=== PATIENT | female | born 1990 | race Two or more races ===

== ENCOUNTER 2019-10-04 09:24 | Observation (INO) | payer MEDICAID ==
[~2019-10-04] VITALS: Ht 149.9 cm; Wt 93.7 kg
[2019-10-04 10:25] LABS: Urine Amorphous Crystal MOD /hpf (None Seen); Urine Bacteria FEW /hpf (None Seen); Urine Blood Negative /uL (Negative); Urine Mucus FEW (None Seen); Urine Specific Gravity 1.009 (1.001-1.035); Urine WBC 9 /hpf (0 - 5)
[2019-10-04 10:53] VITALS: BP 144/81
[2019-10-04] MEDS ORDERED: PREN-153 OR (12:09)
== END 2019-10-04 12:08 | disposition home or self-care (01) | DRG 566 ==
LOC: ER 09:31 → LDRP 10:10
PROVIDERS: ADMIT Obstetrics & Gynecology; ATTEND Obstetrics & Gynecology
DX: O26.892 Other specified pregnancy related conditions, second trimester (principal); R03.0 Elevated blood-pressure reading, without diagnosis of hypertension; R10.9 Unspecified abdominal pain; Z3A.27 27 weeks gestation of pregnancy
CPT/HCPCS: 59025; 81001; 81002; 99284; G0378

== ENCOUNTER 2019-10-09 15:38 | Observation (INO) | payer MEDICAID ==
[~2019-10-09] VITALS: Ht 149.9 cm; Wt 95.7 kg
[~2019-10-09 15:38] MED LIST: PREN-153 OR
[2019-10-09 16:15] LABS: Basophils # (auto) 0 uL; Basophils % (auto) 0.4 % (0.0-2.0); Eosinophils # (auto) 0.1 uL; Eosinophils % (auto) 1.2 % (0.0-7.0); Hematocrit 36.5 % (36.0-46.0); Hemoglobin 12.6 g/dL (12.2-16.2); Lymphocytes % (auto) 19.5 % (10.0-50.0); Mean Corpuscular Hemoglobin 30.1 pg (28.0-32.0); Mean Corpuscular Hgb Conc. 34.6 g/dL (32.0-36.0); Monocytes # (auto) 0.6 uL; Monocytes % (auto) 5.9 % (0.0-12.0); Neutrophils # (auto) 7.7 uL; Platelet Count (auto) 290 10^3/uL (140-450); Red Cell Distribution Width 13.7 % (11.8-14.3); White Blood Cell 10.5 10^3/uL (4.4-10.8)
[2019-10-09 16:33] LABS: Albumin 2.7 g/dL (3.4-5.0); Calcium 9.5 mg/dL (8.5-10.1); INR 0.94 (0.9-1.15); Partial Thromboplastin Time 24.8 sec (23.64-32.05); Potassium 3.5 mmol/L (3.5-5.1)
[2019-10-09 16:37] LABS: Bilirubin, Total 0.2 mg/dL (0.2-1.0)
[2019-10-09 16:38] LABS: Urine Bacteria FEW /hpf (None Seen); Urine Blood Negative /uL (Negative); Urine Specific Gravity 1.006 (1.001-1.035); Urine WBC 3 /hpf (0 - 5)
[2019-10-09 16:49] LABS: Alcohol, Urine < 3.0 mg/dL (0-5); Barbiturate Scree,Urine NEGATIVE (NEGATIVE); Benzodiazephine Screen, Urine NEGATIVE (NEGATIVE); Cannabinoid Screen, Urine POSITIVE (NEGATIVE); Cocaine Screen, Urine NEGATIVE (NEGATIVE); Opiate Scree,Urine NEGATIVE (NEGATIVE); Phencyclidine Screen, Urine NEGATIVE (NEGATIVE)
[2019-10-09 16:56] LABS: Amphetamine Screen, Urine NEGATIVE (NEGATIVE)
== END 2019-10-09 16:58 | disposition home or self-care (01) | DRG 566 ==
LOC: LDRP 15:38
PROVIDERS: ADMIT Obstetrics & Gynecology; ATTEND Obstetrics & Gynecology
DX: O13.3 Gestational [pregnancy-induced] hypertension without significant proteinuria, third trimester (principal); O99.323 Drug use complicating pregnancy, third trimester; F12.90 Cannabis use, unspecified, uncomplicated; Z3A.28 28 weeks gestation of pregnancy
CPT/HCPCS: 36415; 59025; 80053; 80307; 81001; 81002; 84550; 85025; 85610; 85730; G0378

== ENCOUNTER 2019-10-11 11:15 | Observation (INO) | payer MEDICAID ==
[2019-10-11 12:42] LABS: Protein, Urine 13.9 mg/dL (0.0-11.9)
== END 2019-10-11 13:00 | disposition home or self-care (01) | DRG 566 ==
LOC: LDRP 11:15
PROVIDERS: ADMIT Obstetrics & Gynecology; ATTEND Obstetrics & Gynecology
DX: O13.3 Gestational [pregnancy-induced] hypertension without significant proteinuria, third trimester (principal); Z3A.28 28 weeks gestation of pregnancy
CPT/HCPCS: 59025; 81002; 84156; G0378

== ENCOUNTER 2019-10-14 15:00 | Observation (INO) | payer MEDICAID ==
[~2019-10-14] VITALS: Ht 149.9 cm; Wt 97.1 kg
[2019-10-14] MEDS ORDERED: LABETALOL HCL 200 MG TAB PO ONE (16:00)
[2019-10-14 16:59] LABS: Urine Bacteria FEW /hpf (None Seen); Urine Blood Negative /uL (Negative); Urine Specific Gravity 1.008 (1.001-1.035); Urine WBC 2 /hpf (0 - 5)
[2019-10-14 17:04] LABS: Alcohol, Urine < 3.0 mg/dL (0-5); Amphetamine Screen, Urine NEGATIVE (NEGATIVE); Barbiturate Scree,Urine NEGATIVE (NEGATIVE); Benzodiazephine Screen, Urine NEGATIVE (NEGATIVE); Cannabinoid Screen, Urine POSITIVE (NEGATIVE); Cocaine Screen, Urine NEGATIVE (NEGATIVE); Opiate Scree,Urine NEGATIVE (NEGATIVE); Phencyclidine Screen, Urine NEGATIVE (NEGATIVE)
== END 2019-10-14 17:55 | disposition home or self-care (01) | DRG 566 ==
LOC: LDRP 15:00
PROVIDERS: ADMIT Obstetrics & Gynecology; ATTEND Obstetrics & Gynecology
DX: O13.3 Gestational [pregnancy-induced] hypertension without significant proteinuria, third trimester (principal); Z3A.29 29 weeks gestation of pregnancy
CPT/HCPCS: 59025; 80307; 81001; 81002; G0378

== ENCOUNTER 2019-10-17 12:05 | Observation (INO) | payer MEDICAID ==
[~2019-10-17] VITALS: Ht 149.9 cm; Wt 97.1 kg
[2019-10-17] MEDS ORDERED: BETAMETHASONE ACET (6MG/ML) 5ML VIAL IM ONE (13:15)
[2019-10-17] MEDS ORDERED: LACTATED RINGER'S 1,000 ML IV ONE (13:15)
[2019-10-17 14:25] LABS: Albumin 2.6 g/dL (3.4-5.0); Calcium 8.9 mg/dL (8.5-10.1); Potassium 3.4 mmol/L (3.5-5.1)
[2019-10-17 14:28] LABS: BUN/Creatinine Ratio 11.4; Bilirubin, Total 0.3 mg/dL (0.2-1.0); Total Protein 6.6 g/dL (6.4-8.2)
[2019-10-20] MEDS ORDERED: LABE200T18 PO (06:42)
== END 2019-10-17 15:40 | disposition home or self-care (01) | DRG 566 ==
LOC: LDRP 12:05
PROVIDERS: ADMIT Specialist; ATTEND Specialist
DX: O13.3 Gestational [pregnancy-induced] hypertension without significant proteinuria, third trimester (principal); Z3A.29 29 weeks gestation of pregnancy
CPT/HCPCS: 36415; 59025; 76818; 80053; 81002; 96372; G0378; J0702; 96361; 96366

== ENCOUNTER 2019-10-18 14:05 | Observation (INO) | payer MEDICAID ==
[~2019-10-18] VITALS: Ht 149.9 cm; Wt 97.5 kg
[2019-10-18] MEDS ORDERED: BETAMETHASONE ACET (6MG/ML) 5ML VIAL IM SCH (14:45)
[2019-10-18 15:08] LABS: Urine Bacteria NONE SEEN /hpf (None Seen); Urine Blood Negative /uL (Negative); Urine WBC 4 /hpf (0 - 5)
[2019-10-18 15:20] LABS: Alcohol, Urine < 3.0 mg/dL (0-5); Amphetamine Screen, Urine NEGATIVE (NEGATIVE); Barbiturate Scree,Urine NEGATIVE (NEGATIVE); Benzodiazephine Screen, Urine NEGATIVE (NEGATIVE); Cannabinoid Screen, Urine POSITIVE (NEGATIVE); Cocaine Screen, Urine NEGATIVE (NEGATIVE); Opiate Scree,Urine NEGATIVE (NEGATIVE); Phencyclidine Screen, Urine NEGATIVE (NEGATIVE)
[2019-10-19] MEDS ORDERED: BETAMETHASONE ACET (6MG/ML) 5ML VIAL IM SCH (10:00)
== END 2019-10-18 15:40 | disposition home or self-care (01) | DRG 861 ==
LOC: LDRP 14:05
PROVIDERS: ADMIT Specialist; ATTEND Specialist
DX: Z34.83 Encounter for supervision of other normal pregnancy, third trimester (principal); Z3A.29 29 weeks gestation of pregnancy
CPT/HCPCS: 80307; 81001; G0378; J0702; 59025; 81002; 96372

== ENCOUNTER 2019-10-24 13:55 | Observation (INO) | payer MEDICAID ==
[~2019-10-24 13:55] MED LIST changes: +LABE200T18 PO
== END 2019-10-24 16:30 | disposition home or self-care (01) | DRG 566 ==
LOC: LDRP 13:55
PROVIDERS: ADMIT Specialist; ATTEND Specialist
DX: O13.3 Gestational [pregnancy-induced] hypertension without significant proteinuria, third trimester (principal); O60.03 Preterm labor without delivery, third trimester; Z3A.30 30 weeks gestation of pregnancy
CPT/HCPCS: 59025; 76818; 81002; 84156; G0378

== ENCOUNTER 2019-10-27 15:00 | Observation (INO) | payer MEDICAID ==
[~2019-10-27] VITALS: Ht 149.9 cm; Wt 96.2 kg
[2019-10-27] MEDS ORDERED: NIF10C PO (16:30)
== END 2019-10-27 17:25 | disposition home or self-care (01) | DRG 566 ==
LOC: LDRP 15:00
PROVIDERS: ADMIT Specialist; ATTEND Specialist
DX: O13.3 Gestational [pregnancy-induced] hypertension without significant proteinuria, third trimester (principal); O60.03 Preterm labor without delivery, third trimester; Z3A.31 31 weeks gestation of pregnancy
CPT/HCPCS: 59025; 76818; 81002; G0378

== ENCOUNTER 2019-10-29 10:05 | Observation (INO) | payer MEDICAID ==
[~2019-10-29 10:05] MED LIST changes: +NIF10C PO
[2019-10-29 10:41] LABS: Basophils # (auto) 0 uL; Basophils % (auto) 0.5 % (0.0-2.0); Eosinophils # (auto) 0.2 uL; Hematocrit 36.9 % (36.0-46.0); Hemoglobin 12.6 g/dL (12.2-16.2); Lymphocytes % (auto) 20.2 % (10.0-50.0); Mean Corpuscular Hemoglobin 30.1 pg (28.0-32.0); Mean Corpuscular Hgb Conc. 34.1 g/dL (32.0-36.0); Mean Corpuscular Volume 88.5 fL (80.0-100.0); Monocytes # (auto) 0.5 uL; Monocytes % (auto) 5.7 % (0.0-12.0); Neutrophils # (auto) 6.9 uL; Neutrophils % (auto) 71.6 % (37.0-80.0); Nucleated Red Blood Cells % 0.1 %; Platelet Count (auto) 261 10^3/uL (140-450); Red Blood Cells 4.17 10^6/uL (4.0-5.20); Red Cell Distribution Width 14.1 % (11.8-14.3); White Blood Cell 9.7 10^3/uL (4.4-10.8)
--- NOTE | 2019-10-29 10:45 | NUR ---
Blood loss 91ml. Addendum: 10/29/19 at 1122 by Laura Cruz RN Note made on wrong Patient
[2019-10-29 10:51] LABS: Urine Bacteria NONE SEEN /hpf (None Seen); Urine Blood Negative /uL (Negative); Urine Specific Gravity 1.011 (1.001-1.035); Urine WBC 3 /hpf (0 - 5)
[2019-10-29 10:52] LABS: INR 0.91 (0.9-1.15); Partial Thromboplastin Time 25.8 sec (23.64-32.05)
[2019-10-29 11:42] LABS: Amphetamine Screen, Urine NEGATIVE (NEGATIVE); Barbiturate Scree,Urine NEGATIVE (NEGATIVE); Cannabinoid Screen, Urine NEGATIVE (NEGATIVE)
[2019-10-29 11:50] LABS: Alcohol, Urine < 3.0 mg/dL (0-5); Benzodiazephine Screen, Urine NEGATIVE (NEGATIVE); Cocaine Screen, Urine NEGATIVE (NEGATIVE); Opiate Scree,Urine NEGATIVE (NEGATIVE); Phencyclidine Screen, Urine NEGATIVE (NEGATIVE)
[2019-10-29 12:15] LABS: Potassium 3.7 mmol/L (3.5-5.1)
[2019-10-29 12:36] LABS: Albumin 2.7 g/dL (3.4-5.0); BUN/Creatinine Ratio 12.8; Bilirubin, Total 0.2 mg/dL (0.2-1.0); Calcium 8.9 mg/dL (8.5-10.1); Total Protein 6.8 g/dL (6.4-8.2); Uric Acid 3.6 mg/dL (2.6-6.0)
== END 2019-10-29 13:05 | disposition home or self-care (01) | DRG 566 ==
LOC: LDRP 10:05
PROVIDERS: ADMIT Specialist; ATTEND Specialist
DX: O13.3 Gestational [pregnancy-induced] hypertension without significant proteinuria, third trimester (principal); Z3A.31 31 weeks gestation of pregnancy
CPT/HCPCS: 36415; 59025; 80053; 80307; 81001; 81002; 84550; 85025; 85610; 85730; G0378

== ENCOUNTER 2019-11-02 18:34 | Observation (INO) | payer MEDICAID ==
[~2019-11-02] VITALS: Ht 149.9 cm; Wt 93.4 kg
[2019-11-02 22:41] LABS: Protein, Urine 6.5 mg/dL (0.0-11.9)
[2019-11-02] MEDS ORDERED: HYDR250I6 IM (23:08)
== END 2019-11-02 23:00 | disposition home or self-care (01) | DRG 566 ==
LOC: LDRP 18:34
PROVIDERS: ADMIT Obstetrics & Gynecology; ATTEND Obstetrics & Gynecology
DX: O13.3 Gestational [pregnancy-induced] hypertension without significant proteinuria, third trimester (principal); O60.03 Preterm labor without delivery, third trimester; Z3A.31 31 weeks gestation of pregnancy
CPT/HCPCS: 59025; 76818; 81002; 84156; G0378

== ENCOUNTER 2019-11-04 15:03 | Observation (INO) | payer MEDICAID ==
[~2019-11-04 15:03] MED LIST changes: +HYDR250I6 IM
[2019-11-04] MEDS ORDERED: TERBUTALINE SULFATE 1 MG/ML 1ML VIAL SC ONE (16:30)
== END 2019-11-04 17:20 | disposition home or self-care (01) | DRG 566 ==
LOC: LDRP 15:03
PROVIDERS: ADMIT Obstetrics & Gynecology; ATTEND Obstetrics & Gynecology
DX: O13.3 Gestational [pregnancy-induced] hypertension without significant proteinuria, third trimester (principal); O60.03 Preterm labor without delivery, third trimester; Z3A.32 32 weeks gestation of pregnancy
CPT/HCPCS: 59025; 76818; 81002; 96372; G0378; J3105

== ENCOUNTER 2019-11-05 09:10 | Observation (INO) | payer MEDICAID | END 2019-11-05 11:20 | disposition home or self-care (01) | DRG 566 | LOC: LDRP 09:10 | PROVIDERS: ADMIT Specialist; ATTEND Specialist | DX: O26.893 Other specified pregnancy related conditions, third trimester (principal); F12.90 Cannabis use, unspecified, uncomplicated; R10.9 Unspecified abdominal pain; O99.333 Smoking (tobacco) complicating pregnancy, third trimester; F17.210 Nicotine dependence, cigarettes, uncomplicated; O99.323 Drug use complicating pregnancy, third trimester; Z3A.32 32 weeks gestation of pregnancy | CPT/HCPCS: 59025; 81002; G0378 ==

== ENCOUNTER 2019-11-06 11:40 | Observation (INO) | payer MEDICAID ==
[~2019-11-06] VITALS: Ht 149.9 cm; Wt 95.3 kg
[2019-11-06] MEDS ORDERED: NIFEdipine 10 MG CAP PO ONE (12:30)
[2019-11-06] MEDS ORDERED: NIFEdipine 10 MG CAP ONE (12:37)
[2019-11-06 13:39] LABS: Alcohol, Urine < 3.0 mg/dL (0-5); Amphetamine Screen, Urine NEGATIVE (NEGATIVE); Barbiturate Scree,Urine NEGATIVE (NEGATIVE); Benzodiazephine Screen, Urine NEGATIVE (NEGATIVE); Cannabinoid Screen, Urine NEGATIVE (NEGATIVE); Cocaine Screen, Urine NEGATIVE (NEGATIVE); Opiate Scree,Urine NEGATIVE (NEGATIVE); Phencyclidine Screen, Urine NEGATIVE (NEGATIVE)
== END 2019-11-06 14:00 | disposition home or self-care (01) | DRG 563 ==
LOC: LDRP 11:40
PROVIDERS: ADMIT Specialist; ATTEND Specialist
DX: O60.00 Preterm labor without delivery, unspecified trimester (principal); Z3A.00 Weeks of gestation of pregnancy not specified
CPT/HCPCS: 59025; 76818; 80307; 81002; G0378

== ENCOUNTER 2019-11-07 13:13 | Observation (INO) | payer MEDICAID ==
[~2019-11-07] VITALS: Ht 149.9 cm; Wt 95.3 kg
== END 2019-11-07 15:35 | disposition home or self-care (01) | DRG 563 ==
LOC: LDRP 13:13
PROVIDERS: ADMIT Obstetrics & Gynecology; ATTEND Obstetrics & Gynecology
DX: O60.03 Preterm labor without delivery, third trimester (principal); O99.323 Drug use complicating pregnancy, third trimester; O13.3 Gestational [pregnancy-induced] hypertension without significant proteinuria, third trimester; O99.333 Smoking (tobacco) complicating pregnancy, third trimester; F17.210 Nicotine dependence, cigarettes, uncomplicated; F12.90 Cannabis use, unspecified, uncomplicated; Z3A.32 32 weeks gestation of pregnancy
CPT/HCPCS: 59025; 76818; 81002; G0378

== ENCOUNTER 2019-11-10 15:14 | Observation (INO) | payer MEDICAID ==
[~2019-11-10] VITALS: Ht 149.9 cm; Wt 95.3 kg
[2019-11-10] MEDS ORDERED: TERBUTALINE SULFATE 1 MG/ML 1ML VIAL SC SCH (17:45)
== END 2019-11-10 19:30 | disposition home or self-care (01) | DRG 566 ==
LOC: LDRP 15:14
PROVIDERS: ADMIT Specialist; ATTEND Specialist
DX: O13.3 Gestational [pregnancy-induced] hypertension without significant proteinuria, third trimester (principal); F17.210 Nicotine dependence, cigarettes, uncomplicated; O99.333 Smoking (tobacco) complicating pregnancy, third trimester; Z3A.33 33 weeks gestation of pregnancy
CPT/HCPCS: 59025; 76818; 81002; 96372; G0378; J3105

== ENCOUNTER 2019-11-12 09:17 | Observation (INO) | payer MEDICAID ==
[2019-11-12 11:06] LABS: Basophils # (auto) 0 uL; Basophils % (auto) 0.2 % (0.0-2.0); Eosinophils # (auto) 0.1 uL; Eosinophils % (auto) 0.9 % (0.0-7.0); Hematocrit 37.6 % (36.0-46.0); Lymphocytes # (auto) 2.1 uL; Lymphocytes % (auto) 19.1 % (10.0-50.0); Mean Corpuscular Hemoglobin 30.3 pg (28.0-32.0); Mean Corpuscular Hgb Conc. 34.6 g/dL (32.0-36.0); Mean Corpuscular Volume 87.3 fL (80.0-100.0); Monocytes # (auto) 0.7 uL; Monocytes % (auto) 6.5 % (0.0-12.0); Neutrophils # (auto) 8.2 uL; Neutrophils % (auto) 73.3 % (37.0-80.0); Platelet Count (auto) 296 10^3/uL (140-450); Red Cell Distribution Width 14.3 % (11.8-14.3); White Blood Cell 11.2 10^3/uL (4.4-10.8)
[2019-11-12 11:15] LABS: Albumin 2.8 g/dL (3.4-5.0); Calcium 9.1 mg/dL (8.5-10.1); Uric Acid 4.2 mg/dL (2.6-6.0)
[2019-11-12 11:18] LABS: BUN/Creatinine Ratio 21.3; Bilirubin, Total 0.3 mg/dL (0.2-1.0); Total Protein 7.1 g/dL (6.4-8.2)
== END 2019-11-12 13:00 | disposition home or self-care (01) | DRG 566 ==
LOC: LDRP 09:17
PROVIDERS: ADMIT Obstetrics & Gynecology; ATTEND Obstetrics & Gynecology
DX: O13.3 Gestational [pregnancy-induced] hypertension without significant proteinuria, third trimester (principal); F17.210 Nicotine dependence, cigarettes, uncomplicated; O99.333 Smoking (tobacco) complicating pregnancy, third trimester; Z3A.33 33 weeks gestation of pregnancy
CPT/HCPCS: 36415; 59025; 76818; 80053; 81002; 84550; 85025; G0378

== ENCOUNTER 2019-11-14 11:12 | Observation (INO) | payer MEDICAID ==
[2019-11-14 13:17] LABS: Protein, Urine 13.1 mg/dL (0.0-11.9)
[2019-11-14 13:58] LABS: 24 Hr. Total Protein, Urine 229.2 mg/24 Hr (<149.1)
== END 2019-11-14 13:20 | disposition home or self-care (01) | DRG 566 ==
LOC: LDRP 11:12
PROVIDERS: ADMIT Obstetrics & Gynecology; ATTEND Obstetrics & Gynecology
DX: O13.3 Gestational [pregnancy-induced] hypertension without significant proteinuria, third trimester (principal); O60.03 Preterm labor without delivery, third trimester; O99.333 Smoking (tobacco) complicating pregnancy, third trimester; F17.210 Nicotine dependence, cigarettes, uncomplicated; Z3A.33 33 weeks gestation of pregnancy
CPT/HCPCS: 59025; 76818; 81002; 84156; 94760; G0378

== ENCOUNTER 2019-11-18 14:49 | Observation (INO) | payer MEDICAID ==
[~2019-11-18] VITALS: Ht 149.9 cm; Wt 97.5 kg
== END 2019-11-18 15:55 | disposition home or self-care (01) | DRG 563 ==
LOC: LDRP 14:49
PROVIDERS: ADMIT Obstetrics & Gynecology; ATTEND Obstetrics & Gynecology
DX: O60.03 Preterm labor without delivery, third trimester (principal); O26.893 Other specified pregnancy related conditions, third trimester; R10.2 Pelvic and perineal pain; O13.3 Gestational [pregnancy-induced] hypertension without significant proteinuria, third trimester; O99.333 Smoking (tobacco) complicating pregnancy, third trimester; F17.210 Nicotine dependence, cigarettes, uncomplicated; Z91.040 Latex allergy status; Z3A.34 34 weeks gestation of pregnancy
CPT/HCPCS: 59025; 76818; 81002; G0378

== ENCOUNTER 2019-11-21 11:47 | Observation (INO) | payer MEDICAID | END 2019-11-21 13:55 | disposition home or self-care (01) | DRG 566 | LOC: LDRP 11:47 | PROVIDERS: ADMIT Obstetrics & Gynecology; ATTEND Obstetrics & Gynecology | DX: O13.3 Gestational [pregnancy-induced] hypertension without significant proteinuria, third trimester (principal); O60.03 Preterm labor without delivery, third trimester; Z3A.34 34 weeks gestation of pregnancy; Z87.891 Personal history of nicotine dependence; Z91.040 Latex allergy status | CPT/HCPCS: 59025; 76818; 81002; G0378 ==

== ENCOUNTER 2019-11-24 14:02 | Observation (INO) | payer MEDICAID ==
[2019-11-24] MEDS ORDERED: BETAMETHASONE ACET (6MG/ML) 5ML VIAL IM ONE (16:45)
== END 2019-11-24 20:10 | disposition home or self-care (01) | DRG 566 ==
LOC: LDRP 14:02
PROVIDERS: ADMIT Specialist; ATTEND Specialist
DX: O13.3 Gestational [pregnancy-induced] hypertension without significant proteinuria, third trimester (principal); O60.03 Preterm labor without delivery, third trimester; Z87.891 Personal history of nicotine dependence; Z91.040 Latex allergy status; Z3A.35 35 weeks gestation of pregnancy
CPT/HCPCS: 59025; 76818; 81002; G0378

== ENCOUNTER 2019-11-25 12:07 | Observation (INO) | payer MEDICAID ==
[2019-11-25 14:11] LABS: Basophils # (auto) 0 uL; Basophils % (auto) 0.2 % (0.0-2.0); Eosinophils # (auto) 0.1 uL; Eosinophils % (auto) 0.8 % (0.0-7.0); Hemoglobin 12.4 g/dL (12.2-16.2); Lymphocytes # (auto) 1.9 uL; Lymphocytes % (auto) 20.7 % (10.0-50.0); Mean Corpuscular Hemoglobin 30.1 pg (28.0-32.0); Mean Corpuscular Hgb Conc. 34.4 g/dL (32.0-36.0); Mean Corpuscular Volume 87.6 fL (80.0-100.0); Monocytes # (auto) 0.4 uL; Neutrophils # (auto) 6.6 uL; Neutrophils % (auto) 73.3 % (37.0-80.0); Nucleated Red Blood Cells % 0.1 %; Platelet Count (auto) 240 10^3/uL (140-450); Red Blood Cells 4.11 10^6/uL (4.0-5.20); Red Cell Distribution Width 14.3 % (11.8-14.3)
[2019-11-25 14:17] LABS: Urine Amorphous Crystal MOD /hpf (None Seen); Urine Bacteria MOD /hpf (None Seen); Urine Blood Negative /uL (Negative); Urine WBC 19 /hpf (0 - 5)
[2019-11-25 14:24] LABS: INR 0.9 (0.9-1.15); Partial Thromboplastin Time 25.6 sec (23.64-32.05)
[2019-11-25 14:28] LABS: Albumin 2.4 g/dL (3.4-5.0); Calcium 8.6 mg/dL (8.5-10.1); Potassium 3.9 mmol/L (3.5-5.1)
[2019-11-25 14:38] LABS: BUN/Creatinine Ratio 14.8; Bilirubin, Total 0.2 mg/dL (0.2-1.0); Total Protein 6.5 g/dL (6.4-8.2); Uric Acid 4.9 mg/dL (2.6-6.0)
[2019-11-25] MEDS ORDERED: BETAMETHASONE ACET (6MG/ML) 5ML VIAL IM ONE (16:15)
== END 2019-11-25 18:50 | disposition home or self-care (01) | DRG 566 ==
LOC: LDRP 12:07
PROVIDERS: ADMIT Obstetrics & Gynecology; ATTEND Obstetrics & Gynecology
DX: O13.3 Gestational [pregnancy-induced] hypertension without significant proteinuria, third trimester (principal); O60.03 Preterm labor without delivery, third trimester; Z3A.35 35 weeks gestation of pregnancy
CPT/HCPCS: 36415; 59025; 76818; 80053; 81001; 81002; 84550; 85025; 85610; 85730; 96372; G0378; J0702; 96361; 96366

== ENCOUNTER 2019-11-26 19:00 | Observation (INO) | payer MEDICAID ==
[~2019-11-26] VITALS: Ht 149.9 cm; Wt 99.8 kg
[2019-11-26] MEDS ORDERED: BETAMETHASONE ACET (6MG/ML) 5ML VIAL IM ONE (19:30)
== END 2019-11-26 20:07 | disposition home or self-care (01) | DRG 563 ==
LOC: LDRP 19:00
PROVIDERS: ADMIT Obstetrics & Gynecology; ATTEND Obstetrics & Gynecology
DX: O60.03 Preterm labor without delivery, third trimester (principal); O13.3 Gestational [pregnancy-induced] hypertension without significant proteinuria, third trimester; Z3A.35 35 weeks gestation of pregnancy
CPT/HCPCS: 59025; 81002; 96372; G0378

== ENCOUNTER 2019-11-28 10:08 | Observation (INO) | payer MEDICAID | END 2019-11-28 13:40 | disposition home or self-care (01) | DRG 566 | LOC: LDRP 10:08 | PROVIDERS: ADMIT Specialist; ATTEND Specialist | DX: O13.3 Gestational [pregnancy-induced] hypertension without significant proteinuria, third trimester (principal); Z3A.35 35 weeks gestation of pregnancy | CPT/HCPCS: 59025; 76818; 81002; 84156; G0378 ==

== ENCOUNTER 2019-11-29 22:30 | Inpatient (IN) | payer MEDICAID ==
[~2019-11-29] VITALS: Ht 149.9 cm; Wt 99.3 kg
[~2019-11-29 22:30] MED LIST changes: -HYDR250I6 IM
[2019-11-29] MEDS ORDERED: LACT. RINGERS/OXYTOCIN 20UNITS 1,000 ML IV SCH (22:48)
[2019-11-29] MEDS ORDERED: CARBOPROST TROMETHAMINE 250 MCG/1ML VIAL IM PRN (23:00)
[2019-11-29] MEDS ORDERED: PHISODERM TOP SOLN 240ML BTL TOP PRN (23:00)
[2019-11-29] MEDS ORDERED: DERMOPLAST 60ML BOTTLE TOP PRN (23:00)
[2019-11-29] MEDS ORDERED: LIDOCAINE 2%HCL (LOCAL ANESTH.) INJ 20ML MDV ID ONE (23:00)
[2019-11-29] MEDS ORDERED: WITCH HAZEL-GLYCERIN PAD TOP PRN (23:00)
[2019-11-29] MEDS ORDERED: METHYLERGONOVINE MALEATE 0.2 MG/ML AMP IM PRN (23:00)
[2019-11-29] MEDS ORDERED: PENICILLIN G POT 5MIL/D5 50ML 50 ML IV ONE (23:00)
[2019-11-29] MEDS: LACTATED RINGER'S 1,000 ML IV SCH (23:25)
[2019-11-29 23:53] LABS: Basophils # (auto) 0.1 uL; Basophils % (auto) 0.6 % (0.0-2.0); Eosinophils # (auto) 0.1 uL; Eosinophils % (auto) 0.6 % (0.0-7.0); Hemoglobin 13.3 g/dL (12.2-16.2); Lymphocytes # (auto) 2.8 uL; Lymphocytes % (auto) 20.7 % (10.0-50.0); Mean Corpuscular Hemoglobin 30.2 pg (28.0-32.0); Mean Corpuscular Hgb Conc. 34.9 g/dL (32.0-36.0); Mean Corpuscular Volume 86.4 fL (80.0-100.0); Monocytes # (auto) 1.1 uL; Neutrophils # (auto) 9.4 uL; Neutrophils % (auto) 70.1 % (37.0-80.0); Platelet Count (auto) 250 10^3/uL (140-450); Red Cell Distribution Width 14.3 % (11.8-14.3); White Blood Cell 13.4 10^3/uL (4.4-10.8)
[2019-11-30 00:02] LABS: INR 0.86 (0.9-1.15); Partial Thromboplastin Time 21.8 sec (23.64-32.05)
[2019-11-30 00:13] LABS: Bilirubin, Total 0.2 mg/dL (0.2-1.0); Uric Acid 5.1 mg/dL (2.6-6.0)
[2019-11-30 00:15] LABS: Albumin 2.7 g/dL (3.4-5.0); BUN/Creatinine Ratio 21.7; Calcium 9.1 mg/dL (8.5-10.1); Potassium 3.9 mmol/L (3.5-5.1)
[2019-11-30] MEDS ORDERED: LACTATED RINGER'S 1,000 ML IV ONE (00:23)
[2019-11-30] MEDS ORDERED: ePHEDrine SULFATE 50 MG/ML AMP ONE (00:27)
[2019-11-30] MEDS ORDERED: fentaNYL 200mCg/100ml W ROPIVA 100 ML EPI ONE (00:27)
[2019-11-30] MEDS ORDERED: fentaNYL CITRATE 100 MCG/2 ML VL IV ONE (00:30)
[2019-11-30] MEDS ORDERED: LIDOCAINE HCL 2 %PF INJ 10ML AMP IJ ONE (00:30)
[2019-11-30] MEDS ORDERED: NALOXONE HCL 0.4 MG/ML VIAL IV ONE ×2 (00:30→01:45)
[2019-11-30] MEDS ORDERED: fentaNYL 200mCg/100ml W ROPIVA 100 ML EPI SCH (00:30)
[2019-11-30] MEDS ORDERED: ePHEDrine SULFATE 50 MG/ML AMP IV ONE ×2 (00:30→01:45)
[2019-11-30 02:04] LABS: Alcohol, Urine < 3.0 mg/dL (0-5); Amphetamine Screen, Urine NEGATIVE (NEGATIVE); Barbiturate Scree,Urine NEGATIVE (NEGATIVE); Benzodiazephine Screen, Urine NEGATIVE (NEGATIVE); Cannabinoid Screen, Urine NEGATIVE (NEGATIVE); Cocaine Screen, Urine NEGATIVE (NEGATIVE); Opiate Scree,Urine NEGATIVE (NEGATIVE); Phencyclidine Screen, Urine NEGATIVE (NEGATIVE)
[2019-11-30] MEDS ORDERED: PENICILLIN G POT 5MILLION UNIT VIAL ONE (03:07)
[2019-11-30] MEDS: PENICILLIN G POTASSIUM 2,500,000 UNITS in D5W 5% 50 ML IV SCH ×2 (03:53→08:07)
[2019-11-30] MEDS: LACTATED RINGER'S 1,000 ML IV SCH (06:52)
[2019-11-30] MEDS ORDERED: hydrALAZINE HCL 20 MG/ML VL ONE (07:36)
[2019-11-30] MEDS: IBUPROFEN 600 MG TAB PO PRN ×3 (12:25→22:28)
[2019-11-30 15:09] VITALS: BP 145/79
[2019-11-30 19:08] VITALS: BP 150/87
[2019-11-30 22:48] LABS: Urine WBC None Seen /hpf (0 - 5)
[2019-11-30 23:00] VITALS: BP 135/69
[2019-11-30 23:09] LABS: Urine Bacteria NONE SEEN /hpf (None Seen); Urine Blood Negative /uL (Negative); Urine Mucus FEW (None Seen); Urine Specific Gravity 1.021 (1.001-1.035)
[2019-12-01] VITALS (8 sets, daily range): BP systolic 137–161; BP diastolic 72–91
[2019-12-01] MEDS: IBUPROFEN 600 MG TAB PO PRN ×4 (01:15→21:39)
[2019-12-01] MEDS: LABETALOL HCL 200 MG TAB PO SCH ×2 (09:53→21:41)
[2019-12-02 03:30] VITALS: BP 131/80
[2019-12-02] MEDS: IBUPROFEN 600 MG TAB PO PRN ×2 (03:52→15:44)
[2019-12-02 07:15] VITALS: BP 145/84
[2019-12-02] MEDS: LABETALOL HCL 200 MG TAB PO SCH (10:20)
[2019-12-02 11:10] VITALS: BP 150/77
[2019-12-02 15:00] VITALS: BP 120/68
[2019-12-02 19:00] VITALS: BP 168/88
[2019-12-02] MEDS ORDERED: NIFEdipine ER 30 MG TAB PO SCH (19:15)
[2019-12-02 22:28] VITALS: BP 138/78
== END 2019-12-02 22:40 | disposition home or self-care (01) | DRG 560 ==
LOC: LDRP 22:30
PROVIDERS: ADMIT Specialist; ATTEND Specialist
PROC: 10E0XZZ Delivery of Products of Conception, External Approach (ICD-10-PCS; principal; 2019-11-30)
PROC: 0UQGXZZ Repair Vagina, External Approach (ICD-10-PCS; 2019-11-30)
PROC: 3E0R3BZ Introduction of Anesthetic Agent into Spinal Canal, Percutaneous Approach (ICD-10-PCS; 2019-11-30)
PROC: 00HU33Z Insertion of Infusion Device into Spinal Canal, Percutaneous Approach (ICD-10-PCS; 2019-11-30)
DX: O13.4 Gestational [pregnancy-induced] hypertension without significant proteinuria, complicating childbirth (principal); O60.14X0 Preterm labor third trimester with preterm delivery third trimester, not applicable or unspecified; O36.5930 Maternal care for other known or suspected poor fetal growth, third trimester, not applicable or unspecified; O71.4 Obstetric high vaginal laceration alone; Z37.0 Single live birth; Z3A.35 35 weeks gestation of pregnancy
CPT/HCPCS: 36415; 51702; 59409; 62282; 76805; 80053; 80307; 81001; 84112; 84550; 85025; 85610; 85730; 86592; 86850; 86900; 86901; 94760; 96375; G0378; J2540; J2590; J7060

== ENCOUNTER → 2022-08-22 | Outpatient (CLI) | payer MEDICAID ==
[~2022-08-22] MED LIST changes: +ASPI-498 OR; +HYDR250I6 IM; -LABE200T18 PO; +LABE200T7 PO; -NIF10C PO; -PREN-153 OR; +PREN1TAB71 OR
== END | disposition home or self-care (01) ==
LOC: LAB 13:02
PROVIDERS: ATTEND Obstetrics & Gynecology
DX: Z34.80 Encounter for supervision of other normal pregnancy, unspecified trimester (principal); Z3A.00 Weeks of gestation of pregnancy not specified

== ENCOUNTER 2022-08-24 15:58 | Observation (INO) | payer MEDICAID ==
[~2022-08-24 15:58] MED LIST changes: -ASPI-498 OR; -HYDR250I6 IM
[2022-08-24] MEDS ORDERED: HYDR250I6 IM (16:26)
[2022-08-24] MEDS ORDERED: ASPI-498 OR (16:26)
== END 2022-08-24 16:46 | disposition home or self-care (01) ==
LOC: UNDOADMOB 15:58 → LDRP 15:58
PROVIDERS: ADMIT Obstetrics & Gynecology; ATTEND Obstetrics & Gynecology
DX: O60.02 Preterm labor without delivery, second trimester (principal); O62.9 Abnormality of forces of labor, unspecified; O26.893 Other specified pregnancy related conditions, third trimester; R10.30 Lower abdominal pain, unspecified; Z3A.24 24 weeks gestation of pregnancy
CPT/HCPCS: 59025; 81002; G0378

== ENCOUNTER 2022-10-12 10:32 | Observation (INO) | payer MEDICAID ==
[~2022-10-12 10:32] MED LIST changes: +ASPI-498 OR; +HYDR250I6 IM; -LABE200T7 PO
[2022-10-12] MEDS ORDERED: METF-370 PO (12:02)
== END 2022-10-12 12:09 | disposition home or self-care (01) ==
LOC: LDRP 10:32
PROVIDERS: ADMIT Obstetrics & Gynecology; ATTEND Obstetrics & Gynecology
DX: O24.415 Gestational diabetes mellitus in pregnancy, controlled by oral hypoglycemic drugs (principal); Z3A.31 31 weeks gestation of pregnancy; Z79.84 Long term (current) use of oral hypoglycemic drugs
CPT/HCPCS: 59025; 76818; 81002; 82948; 82962; 94760; G0378

== ENCOUNTER 2022-10-18 11:30 | Observation (INO) | payer MEDICAID ==
[~2022-10-18 11:30] MED LIST changes: +METF-370 PO
[2022-10-18] MEDS ORDERED: NIFEdipine 10 MG CAP PO ONE (12:15)
[2022-10-18] MEDS ORDERED: TERBUTALINE SULFATE 1 MG/ML 1ML VIAL SC ONE (12:45)
[2022-10-18 13:27] LABS: Basophils # (auto) 0 10 ^3/uL (0-0.2); Basophils % (auto) 0.2 % (0.0-2.0); Eosinophils # (auto) 0.1 10 ^3/uL (0-0.8); Eosinophils % (auto) 1.1 % (0.0-7.0); Hematocrit 35.2 % (36.0-46.0); Hemoglobin 12.3 g/dL (12.2-16.2); Lymphocytes # (auto) 1.5 10 ^3/uL (0.4-5.4); Lymphocytes % (auto) 17.4 % (10.0-50.0); Mean Corpuscular Hemoglobin 30.4 pg (28.0-32.0); Mean Corpuscular Hgb Conc. 34.9 g/dL (32.0-36.0); Monocytes # (auto) 0.5 10 ^3/uL (0-1.3); Monocytes % (auto) 5.3 % (0.0-12.0); Neutrophils # (auto) 6.4 10 ^3/uL (1.6-8.6); Red Blood Cells 4.05 10^6/uL (4.0-5.20); Red Cell Distribution Width 14.3 % (11.8-14.3); White Blood Cell 8.5 10^3/uL (4.4-10.8)
[2022-10-18 13:39] LABS: Albumin 2.7 g/dL (3.4-5.0); Calcium 8.5 mg/dL (8.5-10.1); Potassium 3.6 mmol/L (3.5-5.1)
[2022-10-18 13:47] LABS: INR 0.88 (0.9-1.15); Partial Thromboplastin Time 26.5 sec (24.6-33.4)
[2022-10-18 13:57] LABS: BUN/Creatinine Ratio 15.6; Bilirubin, Total 0.3 mg/dL (0.2-1.0); Total Protein 5.9 g/dL (6.4-8.2); Uric Acid 3.6 mg/dL (2.6-6.0)
[2022-10-18] MEDS ORDERED: LACTATED RINGER'S 1,000 ML IV ONE (14:45)
[2022-10-18] MEDS ORDERED: NIF10C PO (15:08)
[2022-10-18 15:11] LABS: Protein, Urine 7.7 mg/dL (0.0-11.9)
[2022-10-18 15:23] LABS: Urine Bacteria NONE SEEN /hpf (None Seen); Urine Blood Negative /uL (Negative); Urine Specific Gravity 1.007 (1.001-1.035); Urine WBC 2 /hpf (0 - 5)
== END 2022-10-18 16:15 | disposition home or self-care (01) ==
LOC: UNDOADMOB 11:30 → LDRP 11:30
PROVIDERS: ADMIT Obstetrics & Gynecology; ATTEND Obstetrics & Gynecology
DX: O60.03 Preterm labor without delivery, third trimester (principal); O62.9 Abnormality of forces of labor, unspecified; Z3A.32 32 weeks gestation of pregnancy; Z79.899 Other long term (current) drug therapy
CPT/HCPCS: 36415; 59025; 80053; 81001; 81002; 82570; 82948; 82962; 84156; 84550; 85025; 85610; 85730; 96372; G0378

== ENCOUNTER 2022-10-20 10:19 | Observation (INO) | payer MEDICAID ==
[~2022-10-20] VITALS: Ht 149.9 cm; Wt 100.7 kg
[~2022-10-20 10:19] MED LIST changes: +NIF10C PO
[2022-10-20] MEDS ORDERED: TERBUTALINE SULFATE 1 MG/ML 1ML VIAL SC STA (11:55)
[2022-10-20] MEDS ORDERED: TERBUTALINE SULFATE 1 MG/ML 1ML VIAL SC ONE (12:00)
== END 2022-10-20 12:54 | disposition home or self-care (01) ==
LOC: UNDOADMOB 10:19 → LDRP 10:19 → UNDODISOB 12:54
PROVIDERS: ADMIT Obstetrics & Gynecology; ATTEND Obstetrics & Gynecology
DX: O24.419 Gestational diabetes mellitus in pregnancy, unspecified control (principal); O60.03 Preterm labor without delivery, third trimester; O62.9 Abnormality of forces of labor, unspecified; Z3A.32 32 weeks gestation of pregnancy
CPT/HCPCS: 59025; 76818; 81002; 82962; G0378; J3105

== ENCOUNTER 2022-10-24 09:41 | Observation (INO) | payer MEDICAID | END 2022-10-24 11:37 | disposition home or self-care (01) | LOC: LDRP 09:41 → UNDOADMOB 09:42 → LDRP 09:42 | PROVIDERS: ADMIT Obstetrics & Gynecology; ATTEND Obstetrics & Gynecology | DX: O24.419 Gestational diabetes mellitus in pregnancy, unspecified control (principal); Z3A.33 33 weeks gestation of pregnancy | CPT/HCPCS: 59025; 76818; 81002; 82948; 82962; 94760; G0378 ==

== ENCOUNTER 2022-10-25 11:16 | Observation (INO) | payer MEDICAID ==
[~2022-10-25] VITALS: Ht 149.9 cm; Wt 100.2 kg
[2022-10-25 12:11] LABS: Basophils # (auto) 0 10 ^3/uL (0-0.2); Basophils % (auto) 0.2 % (0.0-2.0); Eosinophils # (auto) 0.1 10 ^3/uL (0-0.8); Eosinophils % (auto) 1.4 % (0.0-7.0); Hematocrit 38.2 % (36.0-46.0); Hemoglobin 12.8 g/dL (12.2-16.2); Lymphocytes # (auto) 1.2 10 ^3/uL (0.4-5.4); Lymphocytes % (auto) 14.2 % (10.0-50.0); Mean Corpuscular Hemoglobin 29.4 pg (28.0-32.0); Mean Corpuscular Hgb Conc. 33.5 g/dL (32.0-36.0); Monocytes # (auto) 0.5 10 ^3/uL (0-1.3); Monocytes % (auto) 5.5 % (0.0-12.0); Neutrophils # (auto) 6.9 10 ^3/uL (1.6-8.6); Neutrophils % (auto) 78.7 % (37.0-80.0); Nucleated Red Blood Cells % 0.1 %; Red Blood Cells 4.34 10^6/uL (4.0-5.20); Red Cell Distribution Width 14.5 % (11.8-14.3); White Blood Cell 8.8 10^3/uL (4.4-10.8)
[2022-10-25 12:17] LABS: INR 0.88 (0.9-1.15); Partial Thromboplastin Time 25.9 sec (24.6-33.4)
[2022-10-25] MEDS ORDERED: TERBUTALINE SULFATE 1 MG/ML 1ML VIAL SC SCH (12:30)
[2022-10-25 12:31] LABS: Urine Bacteria FEW /hpf (None Seen); Urine Blood Negative /uL (Negative); Urine WBC 9 /hpf (0 - 5)
[2022-10-25 13:46] LABS: Albumin 2.6 g/dL (3.4-5.0); Calcium 8.9 mg/dL (8.5-10.1); Potassium 3.5 mmol/L (3.5-5.1)
[2022-10-25 13:48] LABS: BUN/Creatinine Ratio 13.5
[2022-10-25 13:51] LABS: Bilirubin, Total 0.3 mg/dL (0.2-1.0); Total Protein 6.7 g/dL (6.4-8.2)
[2022-10-25 17:46] LABS: Uric Acid 3.8 mg/dL (2.6-6.0)
[2022-10-26 18:29] LABS: Protein, Urine 12.3 mg/dL (0.0-11.9)
== END 2022-10-25 13:49 | disposition home or self-care (01) ==
LOC: UNDOADMOB 11:16 → LDRP 11:16
PROVIDERS: ADMIT Obstetrics & Gynecology; ATTEND Obstetrics & Gynecology
DX: O60.03 Preterm labor without delivery, third trimester (principal); O24.419 Gestational diabetes mellitus in pregnancy, unspecified control; O13.3 Gestational [pregnancy-induced] hypertension without significant proteinuria, third trimester; Z3A.33 33 weeks gestation of pregnancy
CPT/HCPCS: 36415; 59025; 80053; 81001; 81002; 82570; 82948; 82962; 84156; 84550; 85025; 85610; 85730; 94760; 96372; G0378; J3105

== ENCOUNTER 2022-10-27 08:06 | Observation (INO) | payer MEDICAID ==
[2022-10-27 14:36] LABS: Urine Bacteria NONE SEEN /hpf (None Seen); Urine Blood 1+ /uL (Negative); Urine Mucus FEW (None Seen); Urine WBC 16 /hpf (0 - 5); Urine WBC Clumps PRESENT /hpf (None Seen)
[2022-10-27 17:42] LABS: Protein, Urine 28.8 mg/dL (0.0-11.9)
[2022-10-27 17:51] LABS: 24 Hr. Total Protein, Urine 547.2 mg/24 Hr (<149.1)
== END 2022-10-27 13:56 | disposition home or self-care (01) ==
LOC: UNDOADMOB 09:54 → LDRP 09:54 → UNDODISOB 13:56
PROVIDERS: ADMIT Obstetrics & Gynecology; ATTEND Obstetrics & Gynecology
DX: O60.03 Preterm labor without delivery, third trimester (principal); O24.419 Gestational diabetes mellitus in pregnancy, unspecified control; Z3A.33 33 weeks gestation of pregnancy
CPT/HCPCS: 59025; 76818; 81001; 81002; 82570; 84156; 94760; G0378

== ENCOUNTER 2022-10-29 11:08 | Observation (INO) | payer MEDICAID | END 2022-10-29 13:30 | disposition home or self-care (01) | LOC: LDRP 11:08 | PROVIDERS: ADMIT Obstetrics & Gynecology; ATTEND Obstetrics & Gynecology | DX: O13.3 Gestational [pregnancy-induced] hypertension without significant proteinuria, third trimester (principal); O60.03 Preterm labor without delivery, third trimester; O24.419 Gestational diabetes mellitus in pregnancy, unspecified control; Z3A.33 33 weeks gestation of pregnancy | CPT/HCPCS: 59025; 76818; 81002; 82948; 82962; 94760; G0378 ==

== ENCOUNTER 2022-10-31 07:52 | Observation (INO) | payer MEDICAID | END 2022-10-31 11:25 | disposition home or self-care (01) | LOC: UNDOADMOB 10:09 → LDRP 10:09 | PROVIDERS: ADMIT Obstetrics & Gynecology; ATTEND Obstetrics & Gynecology | DX: O24.419 Gestational diabetes mellitus in pregnancy, unspecified control (principal); Z3A.34 34 weeks gestation of pregnancy | CPT/HCPCS: 59025; 76818; 81002; 82962; 94760; G0378 ==

== ENCOUNTER 2022-11-03 10:04 | Observation (INO) | payer MEDICAID ==
[2022-11-03 12:17] LABS: Basophils # (auto) 0 10 ^3/uL (0-0.2); Basophils % (auto) 0.3 % (0.0-2.0); Eosinophils # (auto) 0.1 10 ^3/uL (0-0.8); Eosinophils % (auto) 1.7 % (0.0-7.0); Hematocrit 37.8 % (36.0-46.0); Hemoglobin 12.7 g/dL (12.2-16.2); Lymphocytes # (auto) 1.5 10 ^3/uL (0.4-5.4); Lymphocytes % (auto) 18.4 % (10.0-50.0); Mean Corpuscular Hemoglobin 29.6 pg (28.0-32.0); Mean Corpuscular Hgb Conc. 33.6 g/dL (32.0-36.0); Mean Corpuscular Volume 88.1 fL (80.0-100.0); Monocytes # (auto) 0.5 10 ^3/uL (0-1.3); Monocytes % (auto) 6.2 % (0.0-12.0); Neutrophils # (auto) 5.8 10 ^3/uL (1.6-8.6); Neutrophils % (auto) 73.4 % (37.0-80.0); Nucleated Red Blood Cells % 0.1 %; Red Blood Cells 4.29 10^6/uL (4.0-5.20); Red Cell Distribution Width 14.9 % (11.8-14.3); White Blood Cell 7.9 10^3/uL (4.4-10.8)
[2022-11-03 12:29] LABS: INR 0.86 (0.9-1.15); Partial Thromboplastin Time 26.2 sec (24.6-33.4)
[2022-11-03 12:36] LABS: Albumin 2.5 g/dL (3.4-5.0); Calcium 8.5 mg/dL (8.5-10.1); Potassium 3.5 mmol/L (3.5-5.1)
[2022-11-03 12:38] LABS: Bilirubin, Total 0.3 mg/dL (0.2-1.0); Total Protein 6.1 g/dL (6.4-8.2)
[2022-11-03 12:50] LABS: Alcohol, Urine < 3.0 mg/dL (0-10); Amphetamine Screen, Urine NEGATIVE (NEGATIVE); Barbiturate Scree,Urine NEGATIVE (NEGATIVE); Benzodiazephine Screen, Urine NEGATIVE (NEGATIVE); Cannabinoid Screen, Urine NEGATIVE (NEGATIVE); Cocaine Screen, Urine NEGATIVE (NEGATIVE); Opiate Scree,Urine NEGATIVE (NEGATIVE); Phencyclidine Screen, Urine NEGATIVE (NEGATIVE); Protein, Urine 14.9 mg/dL (0.0-11.9)
[2022-11-03 12:52] LABS: Urine Bacteria NONE SEEN /hpf (None Seen); Urine Blood Negative /uL (Negative); Urine Mucus FEW (None Seen); Urine Specific Gravity 1.016 (1.001-1.035); Urine WBC 5 /hpf (0 - 5)
== END 2022-11-03 13:25 | disposition home or self-care (01) ==
LOC: LDRP 10:04 → UNDOADMOB 10:15 → LDRP 10:15
PROVIDERS: ADMIT Obstetrics & Gynecology; ATTEND Obstetrics & Gynecology
DX: O24.415 Gestational diabetes mellitus in pregnancy, controlled by oral hypoglycemic drugs (principal); O62.9 Abnormality of forces of labor, unspecified; Z3A.34 34 weeks gestation of pregnancy; Z79.84 Long term (current) use of oral hypoglycemic drugs; Z79.82 Long term (current) use of aspirin; Z79.899 Other long term (current) drug therapy
CPT/HCPCS: 36415; 59025; 76818; 80053; 80307; 81001; 81002; 82570; 82948; 82962; 84156; 84550; 85025; 85610; 85730; 94760; G0378

== ENCOUNTER → 2022-11-07 | Outpatient (CLI) | payer MEDICAID ==
[~2022-11-07] MED LIST changes: +CEPH-510 PO; +DOCU-94 PO; +FER325T PO; +HYDR-4902 PO; +IBUP800T27 PO
== END | disposition home or self-care (01) ==
LOC: UNDOADMOB 10:57 → LDRP 10:57 → UNDOADMOB 11:04 → EDSTATUS 13:24 → OB 13:27
PROVIDERS: ATTEND Obstetrics & Gynecology
DX: O24.419 Gestational diabetes mellitus in pregnancy, unspecified control (principal); Z3A.00 Weeks of gestation of pregnancy not specified
CPT/HCPCS: 76818

== ENCOUNTER 2022-11-08 12:07 | Observation (INO) | payer MEDICAID | END 2022-11-08 13:20 | disposition home or self-care (01) | LOC: LDRP 12:07 → UNDOADMOB 12:07 → LDRP 12:53 → UNDODISOB 13:20 | PROVIDERS: ADMIT Obstetrics & Gynecology; ATTEND Obstetrics & Gynecology | DX: O60.03 Preterm labor without delivery, third trimester (principal); O24.419 Gestational diabetes mellitus in pregnancy, unspecified control; O13.3 Gestational [pregnancy-induced] hypertension without significant proteinuria, third trimester; Z3A.35 35 weeks gestation of pregnancy | CPT/HCPCS: 59025; 81002; 82948; 82962; G0378 ==

== ENCOUNTER → 2022-11-08 | Outpatient (CLI) | payer MEDICAID ==
[~2022-11-08] MED LIST changes: -CEPH-510 PO; -DOCU-94 PO; -FER325T PO; -HYDR-4902 PO; -IBUP800T27 PO
[2022-11-08 12:15] LABS: Basophils # (auto) 0.1 10 ^3/uL (0-0.2); Basophils % (auto) 0.7 % (0.0-2.0); Eosinophils # (auto) 0.1 10 ^3/uL (0-0.8); Eosinophils % (auto) 1.4 % (0.0-7.0); Hemoglobin 13.1 g/dL (12.2-16.2); Lymphocytes # (auto) 1.3 10 ^3/uL (0.4-5.4); Mean Corpuscular Hemoglobin 30.5 pg (28.0-32.0); Mean Corpuscular Hgb Conc. 34.5 g/dL (32.0-36.0); Mean Corpuscular Volume 88.4 fL (80.0-100.0); Monocytes # (auto) 0.4 10 ^3/uL (0-1.3); Monocytes % (auto) 5.1 % (0.0-12.0); Neutrophils # (auto) 6.3 10 ^3/uL (1.6-8.6); Neutrophils % (auto) 76.8 % (37.0-80.0); Nucleated Red Blood Cells % 0.2 %; Red Blood Cells 4.29 10^6/uL (4.0-5.20); White Blood Cell 8.2 10^3/uL (4.4-10.8)
[2022-11-09 08:07] LABS: RPR Non Reactive (Non Reactive)
== END | disposition home or self-care (01) ==
LOC: LAB 11:46
PROVIDERS: ATTEND Obstetrics & Gynecology
DX: Z34.80 Encounter for supervision of other normal pregnancy, unspecified trimester (principal); Z3A.00 Weeks of gestation of pregnancy not specified
CPT/HCPCS: 36415; 84112; 85025; 86592

== ENCOUNTER 2022-11-10 09:22 | Observation (INO) | payer MEDICAID ==
[2022-11-10] MEDS ORDERED: METF-370 PO (11:41)
== END 2022-11-10 12:27 | disposition home or self-care (01) ==
LOC: LDRP 10:00 → UNDOADMOB 10:02 → UNDODISOB 12:27
PROVIDERS: ADMIT Obstetrics & Gynecology; ATTEND Obstetrics & Gynecology
DX: O60.03 Preterm labor without delivery, third trimester (principal); O24.419 Gestational diabetes mellitus in pregnancy, unspecified control; Z3A.35 35 weeks gestation of pregnancy
CPT/HCPCS: 59025; 76818; 81002; 82948; 82962; 94760; G0378

== ENCOUNTER 2022-11-14 09:00 | Observation (INO) | payer MEDICAID | END 2022-11-14 11:17 | disposition home or self-care (01) | LOC: UNDOADMOB 10:04 → LDRP 10:04 → UNDODISOB 11:17 | PROVIDERS: ADMIT Obstetrics & Gynecology; ATTEND Obstetrics & Gynecology | DX: O24.419 Gestational diabetes mellitus in pregnancy, unspecified control (principal); Z3A.36 36 weeks gestation of pregnancy | CPT/HCPCS: 59025; 76818; 81002; 82948; 82962; 94760; G0378 ==

== ENCOUNTER 2022-11-17 10:23 | Observation (INO) | payer MEDICAID | END 2022-11-17 11:59 | disposition home or self-care (01) | LOC: LDRP 10:23 → UNDOADMOB 10:47 → UNDODISOB 11:59 | PROVIDERS: ADMIT Obstetrics & Gynecology; ATTEND Obstetrics & Gynecology | DX: O24.419 Gestational diabetes mellitus in pregnancy, unspecified control (principal); Z3A.36 36 weeks gestation of pregnancy | CPT/HCPCS: 59025; 76818; 81002; 82948; 82962; 94760; G0378 ==

== ENCOUNTER 2022-11-21 10:59 | Observation (INO) | payer MEDICAID | END 2022-11-21 12:18 | disposition home or self-care (01) | LOC: LDRP 10:59 → UNDOADMOB 10:59 → LDRP 11:18 → UNDODISOB 12:18 | PROVIDERS: ADMIT Obstetrics & Gynecology; ATTEND Obstetrics & Gynecology | DX: O24.419 Gestational diabetes mellitus in pregnancy, unspecified control (principal); Z3A.37 37 weeks gestation of pregnancy | CPT/HCPCS: 59025; 76818; 81002; 82948; 82962; 94760; G0378 ==

== ENCOUNTER 2022-11-22 20:07 | Observation (INO) | payer MEDICAID ==
[2022-11-22 21:28] LABS: Basophils # (auto) 0.1 10 ^3/uL (0-0.2); Basophils % (auto) 0.7 % (0.0-2.0); Eosinophils # (auto) 0.1 10 ^3/uL (0-0.8); Eosinophils % (auto) 1.4 % (0.0-7.0); Hematocrit 37.3 % (36.0-46.0); Hemoglobin 12.7 g/dL (12.2-16.2); Lymphocytes # (auto) 1.8 10 ^3/uL (0.4-5.4); Lymphocytes % (auto) 20.9 % (10.0-50.0); Mean Corpuscular Hemoglobin 30.1 pg (28.0-32.0); Mean Corpuscular Hgb Conc. 34.1 g/dL (32.0-36.0); Mean Corpuscular Volume 88.3 fL (80.0-100.0); Monocytes # (auto) 0.6 10 ^3/uL (0-1.3); Neutrophils # (auto) 5.9 10 ^3/uL (1.6-8.6); Nucleated Red Blood Cells % 0.1 %; Red Blood Cells 4.22 10^6/uL (4.0-5.20); Red Cell Distribution Width 15.6 % (11.8-14.3); White Blood Cell 8.4 10^3/uL (4.4-10.8)
[2022-11-22 22:03] LABS: INR 0.87 (0.9-1.15); Partial Thromboplastin Time 25.8 sec (24.6-33.4)
[2022-11-22 22:21] LABS: Urine Bacteria NONE SEEN /hpf (None Seen); Urine Blood Negative /uL (Negative); Urine Budding Yeast MODERATE /hpf (None Seen); Urine Specific Gravity 1.021 (1.001-1.035); Urine WBC 6 /hpf (0 - 5)
[2022-11-22 22:27] LABS: Albumin 2.5 g/dL (3.4-5.0); Potassium 4.1 mmol/L (3.5-5.1); Uric Acid 4.3 mg/dL (2.6-6.0)
[2022-11-22 22:30] LABS: BUN/Creatinine Ratio 30.8; Bilirubin, Total 0.2 mg/dL (0.2-1.0); Total Protein 5.7 g/dL (6.4-8.2)
[2022-11-22 22:30] LABS: Protein, Urine 21.7 mg/dL (0.0-11.9)
== END 2022-11-22 23:45 | disposition home or self-care (01) ==
LOC: LDRP 20:07
PROVIDERS: ADMIT Obstetrics & Gynecology; ATTEND Obstetrics & Gynecology
DX: O13.3 Gestational [pregnancy-induced] hypertension without significant proteinuria, third trimester (principal); O62.9 Abnormality of forces of labor, unspecified; O24.419 Gestational diabetes mellitus in pregnancy, unspecified control; Z3A.37 37 weeks gestation of pregnancy
CPT/HCPCS: 36415; 59025; 76818; 80053; 81001; 81002; 82570; 82948; 82962; 84156; 84550; 85025; 85610; 85730; G0378

== ENCOUNTER 2022-11-24 10:07 | Observation (INO) | payer MEDICAID ==
[~2022-11-24 10:07] MED LIST changes: -HYDR250I6 IM
[2022-11-24 13:20] LABS: Protein, Urine 16.4 mg/dL (0.0-11.9)
[2022-11-24 13:34] LABS: 24 Hr. Total Protein, Urine 426.4 mg/24 Hr (<149.1)
[2022-11-24 14:03] LABS: Protein, Urine 7.1 mg/dL (0.0-11.9)
== END 2022-11-24 13:05 | disposition home or self-care (01) ==
LOC: LDRP 10:07 → UNDOADMOB 10:15 → UNDODISOB 13:05
PROVIDERS: ADMIT Obstetrics & Gynecology; ATTEND Obstetrics & Gynecology
DX: O13.3 Gestational [pregnancy-induced] hypertension without significant proteinuria, third trimester (principal); O24.419 Gestational diabetes mellitus in pregnancy, unspecified control; O62.9 Abnormality of forces of labor, unspecified; Z3A.37 37 weeks gestation of pregnancy
CPT/HCPCS: 59025; 76818; 81002; 82570; 82948; 82962; 84156; 94760; G0378

== ENCOUNTER 2022-11-26 11:28 | Observation (INO) | payer MEDICAID | END 2022-11-26 13:55 | disposition home or self-care (01) | LOC: LDRP 11:28 | PROVIDERS: ADMIT Obstetrics & Gynecology; ATTEND Obstetrics & Gynecology | DX: O13.3 Gestational [pregnancy-induced] hypertension without significant proteinuria, third trimester (principal); O24.419 Gestational diabetes mellitus in pregnancy, unspecified control; O62.9 Abnormality of forces of labor, unspecified; O12.03 Gestational edema, third trimester; Z3A.37 37 weeks gestation of pregnancy | CPT/HCPCS: 59025; 76818; 81002; 82948; 82962; 94760; G0378 ==

== ENCOUNTER 2022-11-27 08:32 | Observation (INO) | payer MEDICAID ==
[~2022-11-27] VITALS: Ht 149.9 cm; Wt 101.6 kg
[2022-11-27 11:03] LABS: Basophils # (auto) 0 10 ^3/uL (0-0.2); Basophils % (auto) 0.5 % (0.0-2.0); Eosinophils # (auto) 0.1 10 ^3/uL (0-0.8); Hematocrit 38.2 % (36.0-46.0); Hemoglobin 13.3 g/dL (12.2-16.2); Lymphocytes # (auto) 1.6 10 ^3/uL (0.4-5.4); Lymphocytes % (auto) 18.1 % (10.0-50.0); Mean Corpuscular Hemoglobin 30.6 pg (28.0-32.0); Mean Corpuscular Hgb Conc. 34.9 g/dL (32.0-36.0); Mean Corpuscular Volume 87.9 fL (80.0-100.0); Monocytes # (auto) 0.5 10 ^3/uL (0-1.3); Monocytes % (auto) 5.6 % (0.0-12.0); Neutrophils # (auto) 6.5 10 ^3/uL (1.6-8.6); Neutrophils % (auto) 74.8 % (37.0-80.0); Nucleated Red Blood Cells % 0.1 %; Red Blood Cells 4.35 10^6/uL (4.0-5.20); Red Cell Distribution Width 14.9 % (11.8-14.3); White Blood Cell 8.7 10^3/uL (4.4-10.8)
[2022-11-27 11:25] LABS: INR 0.86 (0.9-1.15); Partial Thromboplastin Time 27.5 sec (24.6-33.4)
[2022-11-27 11:26] LABS: Albumin 2.6 g/dL (3.4-5.0); Calcium 9.2 mg/dL (8.5-10.1); Potassium 3.8 mmol/L (3.5-5.1)
[2022-11-27 11:31] LABS: BUN/Creatinine Ratio 16.7; Bilirubin, Total 0.4 mg/dL (0.2-1.0); Total Protein 6.3 g/dL (6.4-8.2); Uric Acid 4.8 mg/dL (2.6-6.0)
[2022-11-27] MEDS ORDERED: LABETALOL HCL 200 MG TAB PO ONE (12:45)
[2022-11-27 12:58] LABS: Urine Bacteria FEW /hpf (None Seen); Urine Blood Negative /uL (Negative); Urine Specific Gravity 1.004 (1.001-1.035); Urine WBC 10 /hpf (0 - 5)
[2022-11-27 13:06] LABS: Protein, Urine 6.9 mg/dL (0.0-11.9)
== END 2022-11-27 17:39 | disposition home or self-care (01) ==
LOC: LDRP 09:06 → UNDOADMOB 09:24
PROVIDERS: ADMIT Obstetrics & Gynecology; ATTEND Obstetrics & Gynecology
DX: O24.419 Gestational diabetes mellitus in pregnancy, unspecified control (principal); O13.3 Gestational [pregnancy-induced] hypertension without significant proteinuria, third trimester; O62.9 Abnormality of forces of labor, unspecified; Z3A.37 37 weeks gestation of pregnancy
CPT/HCPCS: 36415; 59025; 76818; 80053; 81001; 81002; 82570; 82948; 82962; 84156; 84550; 85025; 85610; 85730; G0378

== ENCOUNTER 2022-11-29 12:02 | Inpatient (IN) | payer MEDICAID ==
[~2022-11-29] VITALS: Ht 149.9 cm; Wt 103.4 kg
[~2022-11-29 12:02] MED LIST changes: -NIF10C PO
[2022-11-29] MEDS ORDERED: LIDOCAINE 2%HCL (LOCAL ANESTH.) INJ 20ML MDV IJ PRN (12:15)
[2022-11-29] MEDS ORDERED: PHISODERM TOP SOLN 240ML BTL TOP PRN (12:15)
[2022-11-29] MEDS ORDERED: DERMOPLAST 60ML BOTTLE TOP PRN (12:15)
[2022-11-29] MEDS ORDERED: WITCH HAZEL-GLYCERIN PAD TOP PRN (12:15)
[2022-11-29] MEDS ORDERED: BUTORPHANOL TARTRATE 2 MG/1 ML VIAL IV PRN ×2 (12:15→12:45)
[2022-11-29] MEDS ORDERED: PROMETHAZINE HCL 25 MG/ML 1ML IV PRN (12:15)
[2022-11-29] MEDS: LACTATED RINGER'S 1,000 ML IV SCH ×3 (12:41→21:44)
[2022-11-29] MEDS ORDERED: diphenhdrAMINE HCL 50 MG/1 ML VL IV PRN (12:45)
[2022-11-29] MEDS ORDERED: miSOPROStol 100 mcg TAB SL PRN (12:45)
[2022-11-29] MEDS ORDERED: TRANEXAMIC ACID 1,000 MG in SODIUM CHL 0.9% 100 ML IV PRN (12:45)
[2022-11-29] MEDS ORDERED: ONDANSETRON HCL 4 MG/2 ML VIAL IV PRN (12:45)
[2022-11-29 13:06] LABS: Basophils # (auto) 0 10 ^3/uL (0-0.2); Basophils % (auto) 0.4 % (0.0-2.0); Eosinophils # (auto) 0.1 10 ^3/uL (0-0.8); Eosinophils % (auto) 0.9 % (0.0-7.0); Hematocrit 37.3 % (36.0-46.0); Hemoglobin 12.7 g/dL (12.2-16.2); Lymphocytes # (auto) 1.5 10 ^3/uL (0.4-5.4); Lymphocytes % (auto) 18.4 % (10.0-50.0); Mean Corpuscular Hemoglobin 29.9 pg (28.0-32.0); Mean Corpuscular Hgb Conc. 34.2 g/dL (32.0-36.0); Mean Corpuscular Volume 87.5 fL (80.0-100.0); Monocytes # (auto) 0.4 10 ^3/uL (0-1.3); Monocytes % (auto) 5.4 % (0.0-12.0); Neutrophils % (auto) 74.9 % (37.0-80.0); Nucleated Red Blood Cells % 0.1 %; Red Blood Cells 4.26 10^6/uL (4.0-5.20); Red Cell Distribution Width 15.1 % (11.8-14.3)
[2022-11-29 13:12] LABS: INR 0.86 (0.9-1.15); Partial Thromboplastin Time 26.6 sec (24.6-33.4)
[2022-11-29 13:14] LABS: Urine Bacteria FEW /hpf (None Seen); Urine Blood 3+ /uL (Negative); Urine Mucus FEW (None Seen); Urine Specific Gravity 1.027 (1.001-1.035); Urine WBC 2 /hpf (0 - 5)
[2022-11-29 13:15] LABS: Albumin 2.6 g/dL (3.4-5.0); BUN/Creatinine Ratio 25.5; Calcium 8.8 mg/dL (8.5-10.1); Potassium 3.7 mmol/L (3.5-5.1)
[2022-11-29 13:18] LABS: Bilirubin, Total 0.3 mg/dL (0.2-1.0); Total Protein 6.4 g/dL (6.4-8.2)
[2022-11-29 13:30] LABS: Alcohol, Urine < 3.0 mg/dL (0-10); Amphetamine Screen, Urine NEGATIVE (NEGATIVE); Barbiturate Scree,Urine NEGATIVE (NEGATIVE); Benzodiazephine Screen, Urine NEGATIVE (NEGATIVE); Cannabinoid Screen, Urine NEGATIVE (NEGATIVE); Cocaine Screen, Urine NEGATIVE (NEGATIVE); Opiate Scree,Urine NEGATIVE (NEGATIVE); Phencyclidine Screen, Urine NEGATIVE (NEGATIVE)
[2022-11-29 13:34] LABS: Protein, Urine 43.3 mg/dL (0.0-11.9)
[2022-11-29] MEDS: miSOPROStol 50 MCG per PRE-CUT 1/2 TAB PO PRN ×2 (14:10→18:10)
[2022-11-29] MEDS ORDERED: LACT. RINGERS/OXYTOCIN 20UNITS 500 ML IV ONE ×2 (15:00→16:00)
[2022-11-29] MEDS ORDERED: LIDOCAINE HCL 2 %PF INJ 10ML AMP IJ ONE (16:45)
[2022-11-29] MEDS ORDERED: ROPIVACAINE HCL 200 ML EPI SCH ×2 (16:45→18:15)
[2022-11-29] MEDS ORDERED: NALOXONE HCL 0.4 MG/ML VIAL IV ONE (16:45)
[2022-11-29] MEDS ORDERED: fentaNYL CITRATE 100 MCG/2 ML VL IV ONE (16:45)
[2022-11-29] MEDS ORDERED: LIDOCAINE 1%-Mpf/Epinephrine 1:200,000 IJ ONE (16:45)
[2022-11-29] MEDS ORDERED: ePHEDrine SULFATE 50 MG/ML AMP IV ONE (16:45)
[2022-11-29] MEDS ORDERED: FAMOTIDINE (10MG/ML) 2ML VL IV PRN (18:45)
[2022-11-30] MEDS ORDERED: fentaNYL CITRATE 100 MCG/2 ML VL ONE ×3 (00:40→21:26)
[2022-11-30] MEDS ORDERED: fentaNYL CITRATE 100 MCG/2 ML VL IV ONE ×2 (00:45→09:30)
[2022-11-30] MEDS ORDERED: Lidocaine W-Epinephrine 1.5%-1:200,000 INJ 10ml Vial ONE ×2 (01:19→02:37)
[2022-11-30] MEDS ORDERED: LIDOCAINE 1%-Mpf/Epinephrine 1:200,000 IJ ONE (01:30)
[2022-11-30] MEDS ORDERED: LACT. RINGERS/OXYTOCIN 20UNITS 1,000 ML IV SCH (06:15)
[2022-11-30] MEDS ORDERED: LACT. RINGERS/OXYTOCIN 20UNITS 500 ML IV ONE ×2 (06:15→06:45)
[2022-11-30] MEDS ORDERED: TERBUTALINE SULFATE 1 MG/ML 1ML VIAL SC PRN (06:15)
[2022-11-30 07:07] LABS: RPR Non Reactive (Non Reactive)
[2022-11-30] MEDS ORDERED: NALOXONE HCL 0.4 MG/ML VIAL IV ONE (09:30)
[2022-11-30] MEDS ORDERED: ePHEDrine SULFATE 50 MG/ML AMP IV ONE (09:30)
[2022-11-30] MEDS ORDERED: LORazepam 2MG/ML-1ML VIAL IV ONE (12:00)
[2022-11-30] MEDS: LACTATED RINGER'S 1,000 ML IV SCH ×2 (12:15→20:15)
[2022-11-30] MEDS ORDERED: ceFAZolin 2 GM in D5W 5% 100 ML IV SCH (14:00)
[2022-11-30] MEDS ORDERED: MAGNESIUM SULFATE 40MG/ML 1,000 ML IV SCH (14:00)
[2022-11-30] MEDS ORDERED: MAGNESIUM SULFATE 100 ML IV ONE (14:00)
[2022-11-30] MEDS: hydrALAZINE HCL 20 MG/ML VL IV PRN ×2 (14:55→15:17)
[2022-11-30] MEDS ORDERED: hydrALAZINE HCL 20 MG/ML VL IV PRN (15:15)
[2022-11-30] MEDS ORDERED: ACETAMINOPHEN 325 MG TAB PO ONE (15:15)
[2022-11-30] MEDS ORDERED: LABETALOL HCL 5 MG/ML 4ML SYRINGE IV PRN ×6 (15:15→21:00)
[2022-11-30] MEDS ORDERED: CARBOPROST TROMETHAMINE 250 MCG/1ML VIAL IM PRN (16:00)
[2022-11-30] MEDS ORDERED: ACETAMINOPHEN 325 MG TAB PO PRN (16:00)
[2022-11-30] MEDS ORDERED: D5W 5% IV SCH (16:00)
[2022-11-30] MEDS ORDERED: diphenhdrAMINE HCL 50 MG/1 ML VL IV PRN (16:00)
[2022-11-30] MEDS ORDERED: ONDANSETRON HCL 4 MG/2 ML VIAL IV PRN ×2 (16:00→21:45)
[2022-11-30] MEDS ORDERED: CALCIUM GLUC 4.65 MEQ/10ML IV ONE ×3 (16:00)
[2022-11-30] MEDS ORDERED: GENTAMICIN SULFATE IV SCH (16:00)
[2022-11-30] MEDS: AMPICILLIN SOD 2GM INJ 2 GM in SODIUM CHL 0.9% 100 ML IV SCH (17:28)
[2022-11-30] MEDS: GENTAMICIN SULFATE IV SCH (18:36)
[2022-11-30] MEDS: D5W 5% IV SCH (18:36)
[2022-11-30] MEDS ORDERED: MINERAL OIL TOPICAL 10ml TOP ONE (19:00)
[2022-11-30] MEDS ORDERED: CEPH-510 PO (21:23)
[2022-11-30] MEDS ORDERED: FER325T PO (21:23)
[2022-11-30] MEDS ORDERED: DOCU-94 PO (21:23)
[2022-11-30] MEDS ORDERED: HYDR-4902 PO (21:23)
[2022-11-30] MEDS ORDERED: IBUP800T27 PO (21:23)
[2022-11-30] MEDS ORDERED: MIDAZOLAM HCL 2MG/2ML 2ml VIAL (1mg/ml) ONE (21:26)
[2022-11-30] MEDS ORDERED: SODIUM CHLORIDE LOCK 10 ML ONE (21:27)
[2022-11-30] MEDS ORDERED: SODIUM BICARBONATE 8.4 % INJ 50ML VIAL IV ONE (21:27)
[2022-11-30] MEDS ORDERED: oxyTOCIN 10 UNIT/ML 10ML VIAL ONE (21:27)
[2022-11-30] MEDS ORDERED: DexAMETHasone SOD PHOS 10MG/1ML VIAL INJ ONE (21:27)
[2022-11-30] MEDS ORDERED: ONDANSETRON HCL 4 MG/2 ML VIAL ONE (21:27)
[2022-11-30] MEDS ORDERED: ePHEDrine SULFATE 50 MG/ML AMP ONE (21:27)
[2022-11-30] MEDS ORDERED: LIDOCAINE HCL 2 %PF INJ 10ML AMP IJ ONE ×2 (21:27→22:23)
[2022-11-30] MEDS ORDERED: GUM (CHEWING) 1 GUM CHEW CHEW ONE (21:45)
[2022-11-30] MEDS ORDERED: LACT. RINGERS/OXYTOCIN 20UNITS 1,000 ML IV ONE (21:45)
[2022-11-30] MEDS ORDERED: KETAMINE HCL 10 ML ONE (21:49)
[2022-11-30] MEDS ORDERED: CARBOPROST TROMETHAMINE 250 MCG/1ML VIAL IM ONE (22:14)
[2022-11-30] MEDS ORDERED: LIDOCAINE 2% (LOCAL ANESTH.) PF 5ml SDV ONE (22:23)
[2022-11-30] MEDS ORDERED: MORPHINE SULFATE INJ 2 MG/ml SYRG IV PRN (23:00)
[2022-11-30] MEDS ORDERED: METOCLOPRAMIDE HCL 5MG/ml INJ 2ml VIAL IV PRN (23:00)
[2022-11-30] MEDS ORDERED: HYDROmorphone HCL 2 MG/ML VL/or syr IV PRN (23:00)
[2022-11-30] MEDS ORDERED: HYDROmorphone HCL 2 MG/ML VL/or syr ONE (23:05)
[2022-11-30] MEDS: HYDROmorphone HCL 2 MG/ML VL/or syr IV PRN ×2 (23:08→23:28)
[2022-12-01] VITALS (16 sets, daily range): BP systolic 118–143; BP diastolic 69–95
[2022-12-01] MEDS ORDERED: KETOROLAC TROMETH 30 MG/ML 1ML VIAL IV PRN
[2022-12-01] MEDS: AMPICILLIN SOD 2GM INJ 2 GM in SODIUM CHL 0.9% 100 ML IV SCH ×2 (00:18→06:32)
[2022-12-01] MEDS: ACETAMINOPHEN IV 1000 MG/100ML (10MG/ML) IV PRN ×2 (01:18→09:19)
[2022-12-01] MEDS: DIPHENOXYLATE W/ATROPINE 2.5 MG TAB PO SCH ×3 (03:34→22:00)
[2022-12-01] MEDS: LACTATED RINGER'S 1,000 ML IV SCH ×3 (04:15→20:15)
[2022-12-01 08:35] LABS: Potassium 3.4 mmol/L (3.5-5.1)
[2022-12-01 08:41] LABS: BUN/Creatinine Ratio 14.9; Bilirubin, Total 0.6 mg/dL (0.2-1.0); Total Protein 5.1 g/dL (6.4-8.2)
[2022-12-01] MEDS ORDERED: SODIUM CHL 0.9% IV SCH (10:00)
[2022-12-01] MEDS ORDERED: AMPICILLIN SOD IV SCH (10:00)
[2022-12-01 10:41] LABS: Basophils # (auto) 0 10 ^3/uL (0-0.2); Basophils % (auto) 0.1 % (0.0-2.0); Eosinophils # (auto) 0 10 ^3/uL (0-0.8); Eosinophils % (auto) 0.1 % (0.0-7.0); Hematocrit 28.4 % (36.0-46.0); Hemoglobin 9.8 g/dL (12.2-16.2); Lymphocytes # (auto) 1.1 10 ^3/uL (0.4-5.4); Lymphocytes % (auto) 6.8 % (10.0-50.0); Mean Corpuscular Hemoglobin 30.3 pg (28.0-32.0); Mean Corpuscular Hgb Conc. 34.4 g/dL (32.0-36.0); Mean Corpuscular Volume 88.2 fL (80.0-100.0); Monocytes # (auto) 0.9 10 ^3/uL (0-1.3); Monocytes % (auto) 5.4 % (0.0-12.0); Neutrophils % (auto) 87.6 % (37.0-80.0); Red Blood Cells 3.21 10^6/uL (4.0-5.20); Red Cell Distribution Width 15.4 % (11.8-14.3); White Blood Cell 15.9 10^3/uL (4.4-10.8)
[2022-12-01] MEDS ORDERED: HYDROcodone-ACET 5/325MG TAB PO PRN (12:15)
[2022-12-01] MEDS ORDERED: BISACODYL 10 MG RECT SUPP PR PRN (12:15)
[2022-12-01] MEDS: HYDROcodone-ACET 5/325MG TAB PO PRN ×3 (12:46→21:32)
[2022-12-01] MEDS: AMPICILLIN INJ 1 GM in SODIUM CHL 0.9% 50 ML IV SCH ×2 (13:06→22:38)
[2022-12-01] MEDS: DOCUSATE CALCIUM 240 MG CAP PO SCH (13:51)
[2022-12-01] MEDS: DOCUSATE SOD 100 MG CAP PO SCH ×2 (13:52→22:08)
[2022-12-01] MEDS: IBUPROFEN 800 MG TAB PO PRN (15:59)
[2022-12-01] MEDS: SIMETHICONE 80 MG CHEWABLE TABLET PO SCH ×2 (18:02→22:09)
[2022-12-01] MEDS: D5W 5% IV SCH (18:49)
[2022-12-01] MEDS: GENTAMICIN SULFATE IV SCH (18:49)
[2022-12-02] MEDS: IBUPROFEN 800 MG TAB PO PRN ×3 (00:07→22:24)
[2022-12-02 03:00] VITALS: BP 114/58
[2022-12-02] MEDS: HYDROcodone-ACET 5/325MG TAB PO PRN ×3 (03:09→11:53)
[2022-12-02] MEDS: LACTATED RINGER'S 1,000 ML IV SCH ×2 (04:15→12:15)
[2022-12-02] MEDS: AMPICILLIN INJ 1 GM in SODIUM CHL 0.9% 50 ML IV SCH ×6 (05:32→23:45)
[2022-12-02] MEDS: SIMETHICONE 80 MG CHEWABLE TABLET PO SCH ×4 (05:33→22:23)
[2022-12-02 07:00] VITALS: BP 123/59
[2022-12-02] MEDS: DOCUSATE CALCIUM 240 MG CAP PO SCH (10:06)
[2022-12-02] MEDS: DOCUSATE SOD 100 MG CAP PO SCH ×2 (10:06→22:00)
[2022-12-02 11:00] VITALS: BP 148/82
[2022-12-02] MEDS ORDERED: KETOROLAC TROMETH 30 MG/ML 1ML VIAL IV ONE (17:45)
[2022-12-02] MEDS: D5W 5% IV SCH (18:43)
[2022-12-02] MEDS: GENTAMICIN SULFATE IV SCH (18:43)
[2022-12-02 19:30] VITALS: BP 122/64
[2022-12-02 22:35] VITALS: BP 129/79
[2022-12-03] MEDS: HYDROcodone-ACET 5/325MG TAB PO PRN ×2 (00:04→04:09)
[2022-12-03 03:30] VITALS: BP 130/68
[2022-12-03] MEDS: AMPICILLIN INJ 1 GM in SODIUM CHL 0.9% 50 ML IV SCH (05:26)
[2022-12-03] MEDS: SIMETHICONE 80 MG CHEWABLE TABLET PO SCH (05:27)
[2022-12-03 07:14] VITALS: BP 117/75
== END 2022-12-03 09:35 | disposition home or self-care (01) | DRG 540 ==
LOC: LDRP 12:02 → OBSVTOIN 12:02
PROVIDERS: ADMIT Obstetrics & Gynecology; ATTEND Obstetrics & Gynecology
PROC: 3E0R3BZ Introduction of Anesthetic Agent into Spinal Canal, Percutaneous Approach (ICD-10-PCS; 2022-11-30)
PROC: 3E0R33Z Introduction of Anti-inflammatory into Spinal Canal, Percutaneous Approach (ICD-10-PCS; 2022-11-30)
PROC: 10D00Z1 Extraction of Products of Conception, Low, Open Approach (ICD-10-PCS; principal; 2022-11-30 21:39)
DX: O24.429 Gestational diabetes mellitus in childbirth, unspecified control (principal); O14.14 Severe pre-eclampsia complicating childbirth; E66.01 Morbid (severe) obesity due to excess calories; Z3A.38 38 weeks gestation of pregnancy; Z88.5 Allergy status to narcotic agent; O13.4 Gestational [pregnancy-induced] hypertension without significant proteinuria, complicating childbirth; O61.9 Failed induction of labor, unspecified; O99.214 Obesity complicating childbirth; O77.0 Labor and delivery complicated by meconium in amniotic fluid; Z37.0 Single live birth; Z20.822 Contact with and (suspected) exposure to COVID-19
CPT/HCPCS: 36415; 59025; 62282; 80053; 80170; 80307; 81001; 81002; 82570; 82948; 82962; 83735; 84156; 84550; 85025; 85610; 85730; 86592; 86850; 86900; 86901; 87426; 94760; 96360; 96361; 96365; 96366; 96374; 96375; G0378; J0131; J0690; J1100; J1885; J2001; J2250; J2405; J2590; J3490; J7060